=== PATIENT | male | born 1995 | race Caucasian/White ===

== ENCOUNTER 2023-07-12 18:39 | Day surgery (SDC) | payer BC ==
[~2023-07-12] VITALS: Ht 182.9 cm; Wt 100.0 kg
[~2023-07-12 18:39] MED LIST: ACETAMINOPHEN 1000MG 100ML IV BAG As Ordered ONE; LIDOCAINE 2% 100MG/5ML SDV (FOR ANES.) As Ordered ONE; MIDAZOLAM INJ 2MG/2ML VIAL As Ordered ONE; ONDANSETRON 4MG 2ML VIAL As Ordered ONE; ROCURONIUM BROMIDE 50MG/5ML VIAL As Ordered ONE; dexmedeTOMIDine (4MCG/ML)200MCG/50ML BTL (PRECEDEX) As Ordered ONE; fentaNYL 250 MCG/5 ML INJECTION As Ordered ONE; propofoL 200 MG/20 ML VIAL As Ordered ONE
[2023-07-12] MEDS ORDERED: NORCO, ANEXSIA 5/325MG TABLET (HYDROcodone/ACETAMINOPHEN) PO PRN ×2 (18:40)
[2023-07-12] MEDS ORDERED: KETOROLAC 30 MG/ML 1ML VIAL IV PRN (18:40)
[2023-07-12] MEDS ORDERED: NS 1,000 ML IV SCH (18:40)
[2023-07-12] MEDS ORDERED: ONDANSETRON 4MG 2ML VIAL IV PRN ×2 (18:40→21:45)
[2023-07-12] MEDS ORDERED: KETOROLAC 60MG 2ML VIAL As Ordered ONE (21:20)
[2023-07-12] MEDS ORDERED: SUGAMMADEX SODIUM 500 MG/5 ML VIAL (BRIDION) As Ordered ONE (21:20)
[2023-07-12] MEDS ORDERED: HYDROMORPHONE HCL 0.5 MG/ 0.5 ML SYRINGE IV PRN (21:45)
[2023-07-12] MEDS ORDERED: oxyCODONE 5MG TAB PO PRN (21:45)
[2023-07-12] MEDS ORDERED: LR 1,000 ML IV SCH (21:45)
[2023-07-12] MEDS ORDERED: fentaNYL 100 MCG/2 ML INJECTION IV PRN (21:45)
[2023-07-12] MEDS ORDERED: METOCLOPRAMIDE INJ 10MG/2ML VIAL IV PRN (21:45)
[2023-07-12 22:40] VITALS: BP 118/59; TEMP 96.9; O2SAT 92
[2023-07-12 23:40] VITALS: BP 111/58; TEMP 96.6; O2SAT 93
[2023-07-13] MEDS: metroNIDAZOLE 500 MG in IV 1 EA IV SCH ×2 (00:32→08:37)
[2023-07-13 00:40] VITALS: BP 97/58; TEMP 97; O2SAT 95
[2023-07-13 01:40] VITALS: BP 129/67; TEMP 96; O2SAT 95
[2023-07-13] MEDS ORDERED: CIPROFLOXACIN 400 MG in IV 1 EA IV SCH (02:00)
[2023-07-13 02:40] VITALS: BP 108/60; TEMP 98; O2SAT 97
[2023-07-13 03:40] VITALS: BP 119/73; TEMP 96.5; O2SAT 96
[2023-07-13 04:40] VITALS: BP 103/56; TEMP 97.2; O2SAT 97
[2023-07-13 06:41] LABS: HEMATOCRIT 41.9 % (42.0-52.0); HEMOGLOBIN 14.7 g/dl (13.5-17.5); MEAN CORPUSCULAR HEMOGLOBIN 31.6 pg (27.0-33.0); MEAN CORPUSCULAR HGB CONC 35.1 g/dl (32.0-36.5); MEAN CORPUSCULAR VOLUME 90.1 fl (80.0-96.0); PLATELET COUNT, AUTOMATED 272 10^3/uL (150-450); RED BLOOD COUNT 4.65 10^6/uL (4.30-6.10); WHITE BLOOD COUNT 15.3 10^3/uL (4.0-10.0)
[2023-07-13] MEDS ORDERED: LEVO750T14 PO (07:48)
[2023-07-13] MEDS ORDERED: METR-265 PO (07:48)
[2023-07-13] MEDS ORDERED: SENOKOT S TAB PO SCH (09:00)
== END 2023-07-13 12:10 | disposition home or self-care (01) ==
LOC: M SDC 18:39 → UNDOADMIN 18:39 → M ED INP 18:39 → M MS4PR 20:09 → M ED INP 20:09 → M SDC 07-13 12:10 → UNDODISIN 07-13 12:10
PROVIDERS: ATTEND Surgery
DX: K35.80 Unspecified acute appendicitis (principal); Z88.0 Allergy status to penicillin
CPT/HCPCS: 36415; 44970; 85027; 88304; 96361; 96365; 96366; 96367; 96375; J0131; J0665; J0744; J1100; J1836; J1885; J2250; J2405; J3010

== ENCOUNTER 2023-07-16 17:03 | Emergency (ER) | payer BC ==
[~2023-07-16] VITALS: Ht 182.9 cm; Wt 109.0 kg
[~2023-07-16 17:03] MED LIST changes: -ACETAMINOPHEN 1000MG 100ML IV BAG As Ordered ONE; +LEVO750T14 PO; -LIDOCAINE 2% 100MG/5ML SDV (FOR ANES.) As Ordered ONE; +METR-265 PO; -MIDAZOLAM INJ 2MG/2ML VIAL As Ordered ONE; -ONDANSETRON 4MG 2ML VIAL As Ordered ONE; -ROCURONIUM BROMIDE 50MG/5ML VIAL As Ordered ONE; -dexmedeTOMIDine (4MCG/ML)200MCG/50ML BTL (PRECEDEX) As Ordered ONE; -fentaNYL 250 MCG/5 ML INJECTION As Ordered ONE; -propofoL 200 MG/20 ML VIAL As Ordered ONE
[2023-07-16] MEDS ORDERED: FLON27.5 NARES (22:03)
[2023-07-16] MEDS ORDERED: CETI-24 PO (22:03)
[2023-07-16 22:08] VITALS: BP 131/83; TEMP 97.3; O2SAT 96
== END 2023-07-16 22:11 | disposition home or self-care (01) ==
LOC: M ED 17:03
DX: M54.2 Cervicalgia (principal); H92.02 Otalgia, left ear; Z88.0 Allergy status to penicillin; Z88.1 Allergy status to other antibiotic agents; F17.220 Nicotine dependence, chewing tobacco, uncomplicated

== ENCOUNTER → 2023-07-25 | Outpatient (CLI) | payer BC ==
[~2023-07-25] MED LIST changes: +CETI-24 PO; +FLON27.5 NARES; +ISOVUE-370 76% 100ML VIAL As Ordered ONE
[2023-07-25 13:30] LABS: BASO # 0.1 10^3/uL (0.0-0.2); BASO % 0.5 % (0.0-1.0); EOS # 0.1 10^3/uL (0.0-0.5); HEMATOCRIT 44.8 % (42.0-52.0); LYMPH # 1.6 10^3/uL (1.5-5.0); LYMPH % 16.4 % (24.0-44.0); MEAN CORPUSCULAR HEMOGLOBIN 31.7 pg (27.0-33.0); MEAN CORPUSCULAR HGB CONC 35.7 g/dl (32.0-36.5); MEAN CORPUSCULAR VOLUME 88.9 fl (80.0-96.0); MONO # 0.6 10^3/uL (0.0-0.8); MONO % 5.8 % (2.0-8.0); NEUTROPHILS # 7.4 10^3/uL (1.5-8.5); PLATELET COUNT, AUTOMATED 292 10^3/uL (150-450); RED BLOOD COUNT 5.04 10^6/uL (4.30-6.10); WHITE BLOOD COUNT 9.7 10^3/uL (4.0-10.0)
[2023-07-25 13:55] LABS: ALBUMIN 4.3 G/DL (3.2-5.2); ALKALINE PHOSPHATASE 50 U/L (46-116); ALT/SGPT 48 U/L (7.0-40); AST/SGOT 21 U/L (<34); BILIRUBIN,TOTAL 0.8 MG/DL (0.3-1.2); BLOOD UREA NITROGEN 10 MG/DL (9-23); CALCIUM LEVEL 9.4 MG/DL (8.5-10.1); CARBON DIOXIDE LEVEL 27 MMOL/L (20-31); CHLORIDE LEVEL 110 MMOL/L (98-107); CREATININE FOR GFR 0.97 MG/DL (0.70-1.30); GLOMERULAR FILTRATION RATE > 60.0 (>60); GLUCOSE, FASTING 87 MG/DL (60-100); SODIUM LEVEL 143 MMOL/L (136-145)
== END ==
LOC: M RAD 12:32
PROVIDERS: ATTEND Physician Assistant
DX: R10.10 Upper abdominal pain, unspecified (principal)
CPT/HCPCS: 36415; 74177; 80053; 85025; Q9967

== ENCOUNTER → 2023-07-25 | Outpatient (CLI) | payer BC ==
[~2023-07-25] MED LIST changes: -ISOVUE-370 76% 100ML VIAL As Ordered ONE
== END ==
LOC: M LAB 12:34
PROVIDERS: ATTEND Family Medicine
DX: R10.9 Unspecified abdominal pain (principal)

== ENCOUNTER → 2023-08-16 | Outpatient (CLI) | payer BC | LOC: M EKG 11:39 | PROVIDERS: ATTEND Physician Assistant Medical | DX: R00.2 Palpitations (principal); R07.9 Chest pain, unspecified ==

== ENCOUNTER → 2023-11-25 | Outpatient (CLI) | payer BC | LOC: M RAD 15:17 | PROVIDERS: ATTEND Physician Assistant Medical | DX: M50.123 Cervical disc disorder at C6-C7 level with radiculopathy (principal); H83.3X3 Noise effects on inner ear, bilateral; M50.30 Other cervical disc degeneration, unspecified cervical region; R27.8 Other lack of coordination ==